=== PATIENT | male | born 1990 | race African-American/Black ===

== ENCOUNTER 2017-04-16 02:12 | Emergency (ER) | payer SELFPAY | END 2017-04-16 02:40 | disposition left against medical advice (07) | LOC: JP.ED 02:12 | DX: Z53.21 Procedure and treatment not carried out due to patient leaving prior to being seen by health care provider (principal) | CPT/HCPCS: 99281 ==

== ENCOUNTER 2019-11-20 21:41 | Emergency (ER) | payer SELFPAY ==
[2019-11-20 22:13] VITALS: BP 112/64; PULSE 67
[2019-11-20] MEDS ORDERED: HYDROmorphone 1 MG/ML Syringe IVPUSH ONE (22:19)
--- NOTE | 2019-11-20 22:23 | EDM.PDOC ---
ED HPI GENERAL MEDICAL PROBLEM - General Chief Complaint: Abdominal Pain Stated Complaint: ABDOMINAL PAIN Time Seen by Provider: 11/20/19 22:21 Source of Information: Reports: Patient History Limitations: Reports: No Limitations - History of Present Illness INITIAL COMMENTS - FREE TEXT/NARRATIVE: pt developed aute abdomanal painin the epigastric area. Onset: Today, Sudden, Other ( He developed some pain and then he ate and it got alot worse. ) Duration: Hour(s): Location: Reports: Abdomen Associated Symptoms: Reports: No Other Symptoms epigastric Pain Score (Numeric/FACES): 8 - Related Data Allergies Allergy/AdvReac Type Severity Reaction Status Date / Time No Known Allergies Allergy Verified 11/20/19 22:09 Home Meds: Home Meds NK [No Known Home Meds] 10/29/14 [History] Past Medical History - Past Health History Medical/Surgical History: Denies Medical/Surgical History Musculoskeletal History: Reports: Fracture - Infectious Disease History Infectious Disease History: Reports: Chicken Pox Social & Family History - Tobacco Use Smoking Status *Q: Current Every Day Smoker Years of Tobacco use: 15 Packs/Tins Daily: 1.5 - Caffeine Use Caffeine Use: Reports: Coffee, Soda - Alcohol Use Days Per Week of Alcohol Use: 2 Number of Drinks Per Day: 3 Total Drinks Per Week: 6 - Recreational Drug Use Recreational Drug Use: No ED ROS GENERAL - Review of Systems Review Of Systems: See Below Constitutional: Reports: No Symptoms HEENT: Reports: No Symptoms Respiratory: Reports: No Symptoms Cardiovascular: Reports: No Symptoms Endocrine: Reports: No Symptoms GI/Abdominal: Reports: Abdominal Pain, Other (pt has pain in the epigastric area. ) : Reports: No Symptoms Musculoskeletal: Reports: No Symptoms Skin: Reports: No Symptoms Neurological: Reports: No Symptoms Psychiatric: Reports: Anxiety ED EXAM, GI/ABD - Physical Exam Exam: See Below Text/Narrative:: pt arrived complaining of acute pain in the epigastric area. Exam Limited By: No Limitations General Appearance: Alert, Anxious Ears: Normal TMs Nose: Normal Inspection Throat/Mouth: Normal Inspection Head: Atraumatic Neck: Normal Inspection Respiratory/Chest: No Respiratory Distress Cardiovascular: Regular Rate, Rhythm GI/Abdominal Exam: Tender, Other (pt has tenderness in the epigastric area. ) (Male) Exam: Deferred Rectal (Males) Exam: Deferred Back Exam: Normal Inspection Extremities: Normal Inspection Course - Vital Signs Last Recorded V/S: Last Vital Signs Temp 36.8 C 11/20/19 22:12 Pulse 67 11/20/19 22:12 Resp 26 H 11/20/19 22:12 BP 112/64 11/20/19 22:12 Pulse Ox 99 11/20/19 22:12 - Orders/Labs/Meds Orders: Active Orders 24 hr Category Date Time Status Abdomen Series w Chest 1V [CR] Stat Exams 11/20/19 22:18 Taken UA W/MICROSCOPIC [URIN] Urgent Lab 11/20/19 23:48 Ordered Sodium Chloride 0.9% [Normal Saline] 1,000 ml Med 11/20/19 22:30 Active IV ASDIRECTED Medication Orders Sodium Chloride (Normal Saline) 1,000 mls @ 999 mls/hr IV ASDIRECTED LORRIE Last Admin: 11/20/19 23:05 Dose: 999 mls/hr Labs: Laboratory Tests 11/20/19 11/20/19 11/20/19 Range/Units 22:35 22:35 22:35 WBC 8.8 (4.5-11.0) K/uL RBC 4.81 (4.30-5.90) M/uL Hgb 14.6 (12.0-15.0) g/dL Hct 42.7 (40.0-54.0) % MCV 89 (80-98) fL MCH 30 (27-31) pg MCHC 34 (32-36) % Plt Count 286 (150-400) K/uL Neut % (Auto) 49 (36-66) % Lymph % (Auto) 24 (24-44) % [place] % (Auto) 6 (2-6) % Eos % (Auto) 20 H (2-4) % Baso % (Auto) 1 (0-1) % Sodium 138 L (140-148) mmol/L Potassium 3.4 L (3.6-5.2) mmol/L Chloride 103 (100-108) mmol/L Carbon Dioxide 21 (21-32) mmol/L Anion Gap 17.4 H (5.0-14.0) mmol/L BUN 10 (7-18) mg/dL Creatinine 1.3 (0.8-1.3) mg/dL Est Cr Clr Drug Dosing 83.84 mL/min Estimated GFR (MDRD) > 60 (>60) Glucose 95 (74-106) mg/dL Calcium 9.1 (8.5-10.1) mg/dL Total Bilirubin 1.2 H (0.2-1.0) mg/dL AST 26 (15-37) U/L ALT 23 (12-78) U/L Alkaline Phosphatase 83 (46-116) U/L C-Reactive Protein 0.10 (0.0-0.3) mg/dL Total Protein 6.9 (6.4-8.2) g/dL Albumin 4.0 (3.4-5.0) g/dL Globulin 2.9 (2.3-3.5) g/dL Albumin/Globulin Ratio 1.4 (1.2-2.2) Urine Opiates Screen (NEGATIVE) Ur Oxycodone Screen (NEGATIVE) Urine Methadone Screen (NEGATIVE) Ur Propoxyphene Screen (NEGATIVE) Ur Barbiturates Screen (NEGATIVE) Ur Tricyclics Screen (NEGATIVE) Ur Phencyclidine Scrn (NEGATIVE) Ur Amphetamine Screen (NEGATIVE) U Methamphetamines Scrn (NEGATIVE) Urine MDMA Screen (NEGATIVE) U Benzodiazepines Scrn (NEGATIVE) U Cocaine Metab Screen (NEGATIVE) U Marijuana (THC) Screen (NEGATIVE) Ethyl Alcohol mg/dL 11/20/19 11/20/19 Range/Units 22:51 23:48 WBC (4.5-11.0) K/uL RBC (4.30-5.90) M/uL Hgb (12.0-15.0) g/dL Hct (40.0-54.0) % MCV (80-98) fL MCH (27-31) pg MCHC (32-36) % Plt Count (150-400) K/uL Neut % (Auto) (36-66) % Lymph % (Auto) (24-44) % [place] % (Auto) (2-6) % Eos % (Auto) (2-4) % Baso % (Auto) (0-1) % Sodium (140-148) mmol/L Potassium (3.6-5.2) mmol/L Chloride (100-108) mmol/L Carbon Dioxide (21-32) mmol/L Anion Gap (5.0-14.0) mmol/L BUN (7-18) mg/dL Creatinine (0.8-1.3) mg/dL Est Cr Clr Drug Dosing mL/min Estimated GFR (MDRD) (>60) Glucose (74-106) mg/dL Calcium (8.5-10.1) mg/dL Total Bilirubin (0.2-1.0) mg/dL AST (15-37) U/L ALT (12-78) U/L Alkaline Phosphatase (46-116) U/L C-Reactive Protein (0.0-0.3) mg/dL Total Protein (6.4-8.2) g/dL Albumin (3.4-5.0) g/dL Globulin (2.3-3.5) g/dL Albumin/Globulin Ratio (1.2-2.2) Urine Opiates Screen Negative (NEGATIVE) Ur Oxycodone Screen Negative (NEGATIVE) Urine Methadone Screen Negative (NEGATIVE) Ur Propoxyphene Screen Negative (NEGATIVE) Ur Barbiturates Screen Negative (NEGATIVE) Ur Tricyclics Screen Negative (NEGATIVE) Ur Phencyclidine Scrn Negative (NEGATIVE) Ur Amphetamine Screen Negative (NEGATIVE) U Methamphetamines Scrn Negative (NEGATIVE) Urine MDMA Screen Negative (NEGATIVE) U Benzodiazepines Scrn Negative (NEGATIVE) U Cocaine Metab Screen Negative (NEGATIVE) U Marijuana (THC) Screen Presumptive positive H (NEGATIVE) Ethyl Alcohol < 3 mg/dL Meds: Medications Generic Name Dose Route Start Last Admin Trade Name Freq PRN Reason Stop Dose Admin Sodium Chloride 1,000 mls @ 999 mls/hr 11/20/19 22:30 11/20/19 23:05 Normal Saline IV 999 mls/hr ASDIRECTED LORRIE Administration Discontinued Medications Generic Name Dose Route Start Last Admin Trade Name Freq PRN Reason Stop Dose Admin Al Hydroxide/Mg Hydroxide 15 0 ml 11/20/19 22:52 11/20/19 23:22 ml/ Lidocaine HCl 15 ml PO 11/20/19 22:53 30 ml ONETIME ONE Administration Famotidine 20 mg 11/21/19 00:06 Pepcid PO 11/21/19 00:07 ONETIME ONE Hydromorphone HCl 1 mg 11/20/19 22:19 11/20/19 23:04 Dilaudid IVPUSH 11/20/19 22:20 Not Given ONETIME ONE - Re-Assessments/Exams Free Text/Narrative Re-Assessment/Exam: 11/21/19 00:10 pt was given a GI cocktail and is feeling much better. Because of how severe the pain was he had a flat and upright of the abdoman which did not reveal free air He is constipated and was given a packet of miralx to take when he gets home. Departure - Departure Time of Disposition: 00:04 Disposition: Home, Self-Care 01 Condition: Fair Clinical Impression: Gastrointestinal irritation, Constipation - Discharge Information Referrals: PCP,None [Primary Care Provider] - Forms: ED Department Discharge Care Plan Goals: prilosec 20 mg daily. miralx take 1 packet now Sepsis Event Note - Evaluation Sepsis Screening Result: No Definite Risk - Focused Exam Vital Signs: Vital Signs Temp Pulse Resp BP Pulse Ox 11/20/19 22:12 36.8 C 67 26 H 112/64 99 Date Exam was Performed: 11/21/19 Time Exam was Performed: 00:07 - My Orders Last 24 Hours: My Active Orders 11/20/19 22:18 Abdomen Series w Chest 1V [CR] Stat 11/20/19 22:30 Sodium Chloride 0.9% [Normal Saline] 1,000 ml IV ASDIRECTED 11/20/19 23:48 UA W/MICROSCOPIC [URIN] Urgent - Assessment/Plan Last 24 Hours: My Active Orders 11/20/19 22:18 Abdomen Series w Chest 1V [CR] Stat 11/20/19 22:30 Sodium Chloride 0.9% [Normal Saline] 1,000 ml IV ASDIRECTED 11/20/19 23:48 UA W/MICROSCOPIC [URIN] Urgent
[2019-11-20] MEDS ORDERED: Sodium Chloride 0.9% 1,000 ML IV SCH (22:30)
[2019-11-20] MEDS: Alum Hydrox/Mag Hydrox/Simeth 15 ML, Lidocaine 2% 15 ML PO ONE ×4 (23:05→23:22)
[2019-11-21] MEDS ORDERED: Famotidine 20 MG Tab PO ONE (00:06)
--- NOTE | 2019-11-21 10:02 | CR ---
Abdomen Series w Chest 1V CLINICAL HISTORY: Upper abdominal pain FINDINGS: Lung trevino are clear. Heart size is normal. No free air is seen. Small intestinal configuration is nonacute. There is gas and feces throughout the colon. No definite urinary calcifications are identified. IMPRESSION: Nonacute intestinal gas pattern. Lung trevino are clear
== END 2019-11-21 00:27 | disposition home or self-care (01) ==
LOC: JP.ED 21:41
DX: K59.00 Constipation, unspecified (principal); F17.210 Nicotine dependence, cigarettes, uncomplicated
CPT/HCPCS: 36415; 74022; 80053; 80305; 80307; 81001; 85025; 86140; 96360; 99283; 99284; A9270; J7030